=== PATIENT | female | born 1990 | race African-American/Black ===

== ENCOUNTER 2020-09-14 15:27 | Observation (INO) ==
[2020-09-14 17:33] LABS: Immature Granulocytes % 0.3 % (0-4)
[2020-09-14 17:34] LABS: Basophils % 0.2 %; Eosinophils # 0.1 K/mcL (0.0-0.6); Eosinophils % 1.4 %; Hematocrit 35.1 % (35.3-44.9); Hemoglobin 10.2 g/dL (11.5-15.4); Lymphocytes # 1.1 K/mcL (0.6-4.6); Mean Corpuscular HGB Conc 29.1 g/dL (31.6-35.5); Mean Corpuscular Hemoglobin 23.7 pg (28.0-33.3); Mean Corpuscular Volume 81.6 fL (83.0-100.0); Mean Platelet Volume 9.2 fL (9.4-12.4); Monocytes # 0.5 K/mcL (0.0-1.3); Monocytes % 5.2 %; Platelet Count 349 K/mcL (140-400); Red Cell Distribution Width 15.9 % (11.5-14.5); Segmented Neutrophils % 81.9 %; White Blood Count 9.8 K/mcL (4.3-11.1)
[2020-09-14 17:45] LABS: Alanine Aminotransferase 7 Units/L (7-52); Albumin 3.7 g/dL (3.5-5.7); Albumin/Globulin Ratio 0.9 (1.1-2.2); Alkaline Phosphatase 88 Units/L (34-104); Aspartate Amino Transferase 9 Units/L (13-39); BUN/Creatinine Ratio 11 (6-26); Bilirubin,Total 0.3 mg/dL (0.3-1.0); Blood Urea Nitrogen 7 mg/dL (6-20); Calcium 8.8 mg/dL (8.6-10.3); Carbon Dioxide 28 mEq/L (23-29); Chloride 100 mEq/L (98-107); Globulin 4.2 g/dL (2.4-3.5); Glucose 100 mg/dL (70-105); Osmolality,Calculated 274 (280-300); Sodium 133 mEq/L (136-145); Total Protein 7.9 g/dL (6.4-8.9); eGFR For African Americans > 60 (> 60); eGFR For Non-African Americans > 60 (> 60)
[2020-09-14 18:05] LABS: Platelet Estimate Normal (Normal)
[2020-09-14] MEDS ORDERED: 0.9 % Sodium Chloride 1,000 ML IV ONE (18:10)
[2020-09-14 19:39] LABS: INR 1.2; Prothrombin Time 14.2 Seconds (9.4-12.1)
[2020-09-14 19:42] LABS: Activated Partial Thrombo Time 27.9 Seconds (26.0-36.0)
[2020-09-14] MEDS ORDERED: Isovue-370 500 ML BOTTLE IVP ONE (19:48)
[2020-09-14 20:43] LABS: Alanine Aminotransferase 6 Units/L (7-52); Albumin 3.3 g/dL (3.5-5.7); Albumin/Globulin Ratio 0.8 (1.1-2.2); Alkaline Phosphatase 79 Units/L (34-104); Aspartate Amino Transferase 8 Units/L (13-39); BUN/Creatinine Ratio 9 (6-26); Bilirubin,Direct 0.1 mg/dL (0.0-0.2); Bilirubin,Indirect 0.2 mg/dL (0.0-1.0); Bilirubin,Total 0.3 mg/dL (0.3-1.0); Blood Urea Nitrogen 6 mg/dL (6-20); Calcium 8.5 mg/dL (8.6-10.3); Carbon Dioxide 27 mEq/L (23-29); Chloride 100 mEq/L (98-107); Globulin 3.9 g/dL (2.4-3.5); Glucose 87 mg/dL (70-105); Osmolality,Calculated 273 (280-300); Sodium 133 mEq/L (136-145); Total Protein 7.2 g/dL (6.4-8.9); Troponin I < 0.03 ng/mL (< 0.04); eGFR For African Americans > 60 (> 60); eGFR For Non-African Americans > 60 (> 60)
[2020-09-14 20:50] LABS: Bacteria,Urine Moderate per hpf (None-Few); Bilirubin,Urine Negative (Negative); Blood,Urine Negative (Negative); Clarity,Urine Turbid (Clear); Color,Urine Yellow (Yellow); Glucose,Urine (UA) Normal (Normal); Ketones,Urine Negative (Negative); Leukocyte Esterase,Urine Trace (Negative); Mucus,Urine Few per lpf (None-Few); Nitrite,Urine Positive (Negative); PH,Urine 6.5 pH Units (5.0-8.0); Protein,Urine 30 mg/dL (Neg-Trace); RBC,Urine 0-3 per hpf (0-3); Specific Gravity,Urine 1.025 (1.010-1.025); Squamous Epithelial Cell,Urine Moderate per hpf (None-Few); Urobilinogen,Urine Normal (Normal); WBC,Urine 0-3 per hpf (0-3)
[2020-09-14 21:12] LABS: Amphetamine Screen,Urine Positive ng/mL (Cutoff=1000); Barbiturate Screen,Urine Negative ng/mL (Cutoff=200); Benzodiazepines Screen,Urine Negative ng/mL (Cutoff=200); Cannabinoid Screen,Urine Positive ng/mL (Cutoff = 50); Cocaine Screen,Urine Negative ng/mL (Cutoff= 300); Opiate Screen,Urine Positive ng/mL (Cutoff=300); Phencyclidine Screen,Urine Negative ng/mL (Cutoff=25)
[2020-09-14] MEDS ORDERED: Vancomycin 1,750 MG/517.5 ML IV.SOLN IVPB STA (21:19)
[2020-09-14] MEDS ORDERED: Lidocaine -MPF 2% 5 ML VIAL INFILT ONE (22:00)
[2020-09-14] MEDS ORDERED: Naloxone 0.4 MG/ML INJ IVP PRN (23:17)
[2020-09-14] MEDS ORDERED: Acetaminophen 325 MG TABLET PO PRN (23:17)
[2020-09-14] MEDS ORDERED: *HR* OxyCODONE Immed Rel 5 MG TABLET PO PRN (23:17)
[2020-09-14] MEDS ORDERED: Ondansetron 4 MG/2 ML VIAL IVP PRN (23:17)
[2020-09-15] MEDS: Nicotine 7 MG PATCH.TD24 TD SCH ×2 (00:31→08:41)
[2020-09-15 00:35] LABS: Phosphorous 3.2 mg/dL (2.7-4.5)
[2020-09-15] MEDS ORDERED: cloNIDine HCL 0.1 MG TABLET PO PRN (03:54)
[2020-09-15] MEDS ORDERED: hydrOXYzine pamoate 25 MG CAPSULE PO PRN (03:54)
[2020-09-15] MEDS ORDERED: Cefepime HCl 1,000 MG in Water for inj. (sterile) 10 ML IVP ONE (04:00)
[2020-09-15 04:58] LABS: Basophils % 0.2 %; Eosinophils # 0.1 K/mcL (0.0-0.6); Eosinophils % 0.5 %; Hematocrit 29.8 % (35.3-44.9); Hemoglobin 8.7 g/dL (11.5-15.4); Immature Granulocytes % 0.2 % (0-4); Lymphocytes # 1.4 K/mcL (0.6-4.6); Lymphocytes % 14.4 %; Mean Corpuscular HGB Conc 29.2 g/dL (31.6-35.5); Mean Corpuscular Volume 78.8 fL (83.0-100.0); Mean Platelet Volume 9.1 fL (9.4-12.4); Monocytes # 0.4 K/mcL (0.0-1.3); Monocytes % 4.4 %; Neutrophils # 7.5 K/mcL (1.6-8.9); Platelet Count 294 K/mcL (140-400); Red Blood Count 3.78 M/mcL (3.82-4.97); Red Cell Distribution Width 15.9 % (11.5-14.5); Segmented Neutrophils % 80.3 %; White Blood Count 9.4 K/mcL (4.3-11.1)
[2020-09-15 05:16] LABS: BUN/Creatinine Ratio 9 (6-26); Blood Urea Nitrogen 5 mg/dL (6-20); C-Reactive Protein 80 mg/L (Less than 10); Calcium 8.3 mg/dL (8.6-10.3); Carbon Dioxide 23 mEq/L (23-29); Chloride 105 mEq/L (98-107); Glucose 114 mg/dL (70-105); Osmolality,Calculated 278 (280-300); Potassium 3.8 mEq/L (3.5-5.1); Sodium 135 mEq/L (136-145); eGFR For African Americans > 60 (> 60); eGFR For Non-African Americans > 60 (> 60)
[2020-09-15] MEDS ORDERED: *HR* Enoxaparin 40 MG/0.4 ML SYRINGE SQ SCH (06:00)
[2020-09-15 07:56] VITALS: BP 118/68
[2020-09-15] MEDS ORDERED: Vancomycin 1,750 MG/517.5 ML IV.SOLN IVPB SCH (11:00)
[2020-09-15 18:26] LABS: Hepatitis B Surface Antigen Nonreactive (Nonreactive)
[2020-09-15 18:55] LABS: Hepatitis B Core IgM Nonreactive (Nonreactive)
[2020-09-15 18:58] LABS: HIV-1&2 Antibody & p24 Ag Nonreactive (Nonreactive)
[2020-09-15 18:59] LABS: Hepatitis A Antibody IgM Nonreactive (Nonreactive)
[2020-09-15 20:32] LABS: Hepatitis C Virus Antibody Reactive (Nonreactive)
== END 2020-09-15 11:07 | disposition home or self-care (01) ==
LOC: EMEROOARM 15:27 → 3BNU 15:27
PROVIDERS: ADMIT Family Medicine; ATTEND Family Medicine